=== PATIENT | male | born 1940 | race Caucasian/White ===

== ENCOUNTER → 2018-06-07 | Outpatient (CLI) | payer MEDICARE ==
[~2018-06-07] MED LIST: CEPH250C37 PO
--- NOTE | 2018-06-07 15:12 | RADIOLOGY IMAGING REPORT ---
FACILITY: [facility] PATIENT NAME: Chip Gonzalez : 1940 MR: [id number] V: [id number] EXAM DATE: ORDERING PHYSICIAN: EMMANUEL FUCHS TECHNOLOGIST: Location: [facility] Patient: Chip Gonzalez : 1940 Visit/Account:[id number] Date of Sevice: 06/07/2018 EXAMINATION: Single frontal view of the orbits HISTORY: MRI screening COMPARISON: None. FINDINGS: No metallic or other radiopaque foreign bodies are visualized in the region of the bony orbits. Visu alized osseous structures are unremarkable on this single view. IMPRESSION: Exam is negative for orbital metal. Report Dictated By: Vinh Berman MD at 06/07/2018 3:07 PM Report E-Signed By: Vinh Berman MD at 06/07/2018 3:07 PM WSN:[id number]
--- NOTE | 2018-06-07 16:18 | RADIOLOGY IMAGING REPORT ---
FACILITY: [facility] [place] PATIENT NAME: Chip Gonzalez : 1940 MR: [id number] V: [id number] EXAM DATE: ORDERING PHYSICIAN: EMMANUEL FUCHS TECHNOLOGIST: Location: [facility] [place] Patient: Chip Gonzalez : 1940 Visit/Account:[id number] Date of Sevice: 06/07/2018 MR BRAIN/BRAIN STEM W/ & W/O CON Comparisons: None. Additional pertinent history: Altered mental status with dizziness TECHNIQUE: Multiplanar, multisequence brain MRI was performed with and without gadolinium contrast. CONTRAST: 15 ml of MultiHance. FINDINGS: Sagittal midline structures and craniocervical junction: Negative. Midline shift: None. Ventricles: Mild enlargement of the lateral and third ventricles. Otherwise negative Brain parenchyma: Diffusion weighted imaging: Negative. Gradient sequence: Negative. T2 weighted FLAIR images: Few scattered foci of abnormal increased T2 signal within the subcortical white matter of both cerebral hemispheres posteriorly. These are nonspecific but likely represent s mall vessel ischemic change on a chronic basis. Extra-axial spaces: Mild cerebral atrophy. Dural venous sinuses and major arterial flow voids: Negative. Intracranial enhancement: Negative.. Mastoid air cells and paranasal sinuses: Severe mucosal thickening involving the right maxillary sinu s. Surrounding soft tissues and orbits: Negative. Impression: 1. Mild age related changes as described above. 2. No evidence of acute intracranial pathology. 3. Underlying paranasal sinus disease. Report Dictated By: Alex Medrano MD at 06/07/2018 4:11 PM Report E-Signed By: Alex Medrano MD at 06/07/2018 4:14 PM WSN:[id number]
== END ==
LOC: MRI 14:37
PROVIDERS: ATTEND Physician Assistant
DX: R41.82 Altered mental status, unspecified (principal)
CPT/HCPCS: 70030; 70553